=== PATIENT | female | born 1965 | race Caucasian/White ===

== ENCOUNTER → 2017-08-14 | Outpatient (CLI) | payer OTHER ==
[~2017-08-14] MED LIST: ABIL2TAB2 PO; AMBI10TA PO; LO LTAB PO; MOBI15TA PO; RITA20TA PO; ZOLO50TA PO
[2017-08-14 09:00] LABS: AUTOMATED NEUTROPHIL # 6.8 TH/MM3 (1.8-7.7); BASOPHIL # 0.1 TH/MM3 (0-0.2); BASOPHIL % 0.7 % (0.0-2.0); EOSINOPHIL # 0.1 TH/MM3 (0-0.4); EOSINOPHIL % 1.4 % (0.0-4.0); HEMATOCRIT 39.4 % (35.0-46.0); LYMPH % 22.8 % (9.0-44.0); LYMPHOCYTE # 2.2 TH/MM3 (1.0-4.8); MEAN CELL VOLUME 84.7 FL (80.0-100.0); MEAN CORPUSCULAR HEMOGLOBIN 29.2 PG (27.0-34.0); MEAN CORPUSCULAR HGB CONC 34.5 % (32.0-36.0); MONO % 5.8 % (0.0-8.0); NEUT % 69.3 % (16.0-70.0); PLATELET COUNT 265 TH/MM3 (150-450); RED BLOOD COUNT 4.65 MIL/MM3 (4.00-5.30); RED CELL DISTRIBUTION WIDTH 14.2 % (11.6-17.2); WHITE BLOOD COUNT 9.8 TH/MM3 (4.0-11.0)
[2017-08-14 09:01] LABS: HEMO FLAGS AUTO DIFF
[2017-08-14 09:40] LABS: ANION GAP 6 MEQ/L (5-15); AST (GOT) 17 U/L (15-37); BICARBONATE 26.6 MEQ/L (21.0-32.0); BLOOD UREA NITROGEN 13 MG/DL (7-18); CHLORIDE 105 MEQ/L (98-107); GLOMERULAR FILTRATION RATE 62 ML/MIN (>89); GLUCOSE,FASTING 103 MG/DL (74-99); POTASSIUM 4.1 MEQ/L (3.5-5.1); SODIUM (NA) 138 MEQ/L (136-145)
[2017-08-14 09:50] LABS: ALKALINE PHOSPHATASE 63 U/L (45-117); ALT (GPT) 33 U/L (10-53); HDL CHOLESTEROL 42.5 MG/DL (40.0-60.0); LDL CHOLESTEROL 148 MG/DL (0-99); TOTAL BILIRUBIN ADULT 0.5 MG/DL (0.2-1.0)
[2017-08-14 10:05] LABS: SCAN/DIFF AUTO DIFF CONFIRMED
== END ==
LOC: ELAB 07:36
PROVIDERS: ATTEND Family Medicine
DX: E78.2 Mixed hyperlipidemia (principal)
CPT/HCPCS: 36415; 80053; 80061; 84443; 85025

== ENCOUNTER → 2018-03-27 | Outpatient (CLI) | payer OTHER ==
[~2018-03-27] MED LIST changes: -ABIL2TAB2 PO; +ARIP2 PO; +CYMB60CA PO; +DEXT50CP PO; -RITA20TA PO
[2018-03-27 11:12] LABS: AUTOMATED NEUTROPHIL # 7.3 TH/MM3 (1.8-7.7); BASOPHIL # 0.1 TH/MM3 (0-0.2); BASOPHIL % 0.9 % (0.0-2.0); EOSINOPHIL # 0.2 TH/MM3 (0-0.4); EOSINOPHIL % 1.7 % (0.0-4.0); HEMATOCRIT 40.8 % (35.0-46.0); HEMOGLOBIN 14.3 GM/DL (11.6-15.3); LYMPH % 23.7 % (9.0-44.0); LYMPHOCYTE # 2.5 TH/MM3 (1.0-4.8); MEAN CELL VOLUME 82.9 FL (80.0-100.0); MEAN PLATELET VOLUME 8.7 FL (7.0-11.0); MONO % 5.8 % (0.0-8.0); MONOCYTE # 0.6 TH/MM3 (0-0.9); NEUT % 67.9 % (16.0-70.0); PLATELET COUNT 299 TH/MM3 (150-450); RED BLOOD COUNT 4.92 MIL/MM3 (4.00-5.30); RED CELL DISTRIBUTION WIDTH 13.9 % (11.6-17.2); WHITE BLOOD COUNT 10.7 TH/MM3 (4.0-11.0)
[2018-03-27 11:31] LABS: ALBUMIN 3.9 GM/DL (3.4-5.0); AST (GOT) 21 U/L (15-37); BICARBONATE 27.1 MEQ/L (21.0-32.0); BLOOD UREA NITROGEN 15 MG/DL (7-18); CALCIUM 9.2 MG/DL (8.5-10.1); CHLORIDE 104 MEQ/L (98-107); CREATININE 1.09 MG/DL (0.50-1.00); GLOMERULAR FILTRATION RATE 53 ML/MIN (>89); SODIUM (NA) 139 MEQ/L (136-145)
[2018-03-27 11:41] LABS: ALKALINE PHOSPHATASE 83 U/L (45-117); ALT (GPT) 66 U/L (10-53); DIRECT BILIRUBIN ADULT 0.1 MG/DL (0.0-0.2); GLUCOSE,FASTING 99 MG/DL (74-99); TOTAL BILIRUBIN ADULT 0.6 MG/DL (0.2-1.0); TOTAL PROTEIN 7.4 GM/DL (6.4-8.2)
== END ==
LOC: ELAB 06:58
PROVIDERS: ATTEND Surgery
DX: K80.20 Calculus of gallbladder without cholecystitis without obstruction (principal)
CPT/HCPCS: 36415; 80053; 82248; 85025

== ENCOUNTER → 2018-04-04 | Day surgery (SDC) | payer OTHER ==
[~2018-04-04] VITALS: Ht 165.1 cm; Wt 91.3 kg
[~2018-04-04] MED LIST changes: +*RESP: ALBUTEROL 2.5 MG/3 ML NEB (PRN) PERIprocedural Use ONLY NEB ONE; +ACETAMINOPHEN 1000 MG/100 ML 100 ML IV SCH; +ARIPiprazole 5 MG TAB PO SCH; +BUPIVACAINE/EPINEPHRINE 0.5% PF 30 ML VIAL ONE; +CHLORHEXIDINE GLUCONATE 2 % 1 PACK (2 CLOTHS) TOPICAL PRN; +DEXAMETHASONE SOD PHOS 4 MG/ML VIAL IV ONE; +DO NOT ADM ANY ANTICOAGULANT DRUGS PRN; +DULoxetine HCl DR 60 MG CAP PO SCH; +GLYCOPYRROLATE 1 MG/5 ML SYRINGE IV PUSH ONE; +KETOROLAC TROMETHAMINE 30 MG/ML (IVP) VIAL IV PUSH ONE; +LACTATED RINGER'S 1000 ML IV PRN; +LIDOCAINE HCL 1% PF 5 ML SYRINGE OTHER ONE; -LO LTAB PO; +MELOXICAM 15 MG TAB PO SCH; +METOPROLOL TARTRATE 25 MG TAB PO PRN; +METRONIDAZOLE 500 MG/100 ML ISONTONIC SOLN IV SCH; +MIDAZOLAM HCL 2 MG/2 ML VIAL ONE; +NEOSTIGMINE 5 MG/5 ML SYRINGE IV PUSH ONE; +NORC5TAB PO; +ONDANSETRON HCL 4 MG/2 ML VIAL IV PUSH ONE; +POVIDONE IODINE 5% (ANTISEPSIS KIT) 4 APPLICATIONS EACH NARE PRN; +PROPOFOL 200 MG/20 ML AMP IV ONE; +ROCURONIUM INJ 50 MG/5 ML SYRINGE IV PUSH ONE; +SODIUM CHLORID 0.9% 500 ML IV PRN; -ZOLO50TA PO; +ZOLPIDEM TARTRATE 10 MG TAB PO PRN; +ceFAZolin 2 GM/DEX PREMIX 50 ML IV SCH
--- NOTE | 2018-04-04 14:53 | HHI.PR ---
cc: Atul Stark MD Immediate Post Op Note Procedure Date: April 04, 2018 Pre Op Diagnosis: (1) Gallbladder disease Post Op Diagnosis: (1) Gallbladder disease (2) S/P laparoscopic cholecystectomy Surgeon: Atul Stark Process Mechanic(s): Please see oR record Procedure: Laparoscopic cholecystectomy Findings: Slightly inflamed gallbladder Complications: None Anesthesia: General Drains: None IVF Patient to: PACU Patient Condition: Good Implant/Devices: SEE IMPLANT LOG (if applicable) Date/Time of Procedure: SEE SURGICAL CARE RECORD Atul Stark MD April 04, 2018 14:53
--- NOTE | 2018-04-04 15:25 | MP ---
cc: Atul Stark MD DATE OF OPERATION: 04/04/2018 PREOPERATIVE DIAGNOSIS: Cholelithiasis, biliary colic. POSTOPERATIVE DIAGNOSIS: Cholelithiasis, biliary colic. PROCEDURE PERFORMED: Laparoscopic cholecystectomy. ANESTHESIA: General. SURGEON: Dr. Stark INDICATIONS FOR PROCEDURE: This is a pleasant young lady who has had symptomatic cholelithiasis/cholecystitis. Plans were made for above. PROCEDURE: The patient is taken to the operating room, placed in supine position. After endotracheal anesthesia, her abdomen is prepped with Betadine solution. We make an incision just below the umbilicus. Veress needle inserted with saline load test performed. The abdomen is insufflated to 15 mmHg. Two other working ports are placed, a 5 mm along the xiphoid with another 5 mm in between the 2 previously placed midline ports. The gallbladder can be seen, is grasped superiorly and laterally. Identified the cystic duct and cystic artery, both of which were doubly ligated and transected. We are able to tease off the gallbladder from the liver edge, place in an EndoCatch and pulled out through the umbilical incision and passed off the field. We then inspect the abdomen. Liver is smooth. Peritoneal surfaces are smooth. I do not see any other gross abnormality. I then remove the trocars after the CO2 is removed. The umbilical port site is closed with a 0 Vicryl and the skin is closed with a 4-0 Vicryl. Steri-Strips applied, sterile bandage applied. The patient tolerated the procedure well. No immediate postop complications. Atul Stark MD [facility] , 02:59 PM , 03:24 PM
[2018-04-04 18:50] VITALS: BP 108/73; PULSE 76; RESP 16; TEMP 98.1; O2SAT 96
--- NOTE | 2018-04-06 08:49 | EKG ---
Date Performed: 04/04/2018 Time Performed: 12:33:05 PTAGE: 52 years EKG: Sinus rhythm NORMAL ECG PREVIOUS TRACING : 02/21/2016 08.45 DOCTOR: Keesha Foley Interpretating Date/Time 04/06/2018 08:44:35
== END | disposition home or self-care (01) ==
LOC: HSDC 11:21
PROVIDERS: ATTEND Surgery
DX: K80.10 Calculus of gallbladder with chronic cholecystitis without obstruction (principal); Z01.810 Encounter for preprocedural cardiovascular examination
CPT/HCPCS: 00790; 47562; 88304; 93005; J0690; J1100; J1885; J2250; J2405; J2710; J3010; J7120; J7613